=== PATIENT | male | born 1935 | race Caucasian/White ===

== ENCOUNTER 2018-06-28 05:26 | Observation (INO) | payer OTHER ==
[2018-06-28] MEDS ORDERED: ceFAZolin 2 GM/DEXTROSE 100 ML IV ONE (05:56)
[2018-06-28] MEDS ORDERED: ACETAMINOPHEN 500 MG TAB PO ONE (05:56)
[2018-06-28] MEDS ORDERED: GABAPENTIN 300 MG CAP PO ONE (05:56)
[2018-06-28] MEDS ORDERED: LR 1,000 ML IV ONE (05:58)
[2018-06-28] MEDS ORDERED: CHLORHEXIDINE GLUC HIBICLENS 118 ML BTL TP ONE (06:20)
[2018-06-28] MEDS ORDERED: THROMBIN (BOVINE) 5,000 UNIT VIAL TP ONE (06:21)
[2018-06-28] MEDS ORDERED: DEPO METHYLPREDNISOLONE 40 MG/ML SDV ONE (06:21)
[2018-06-28] MEDS ORDERED: EPINEPHrine 1 MG/ML INJ ONE (06:21)
[2018-06-28] MEDS ORDERED: BUPIVACAINE 0.25% 30 ML SDV ONE (06:21)
[2018-06-28] MEDS ORDERED: BACITRACIN 50,000 UNITS/10 ML SYR IRR ONE (06:22)
[2018-06-28] MEDS ORDERED: NITROGLYCERIN 0.4 MG BTL SL PRN (06:38)
--- NOTE | 2018-06-28 06:38 | PDHPUP ---
History & Physical Update H&P update statement: This history and physical update is based on an assessment of the patient which was completed after admission or registration (within 24 hours), but prior to the surgery/procedure. H&P update: H&P reviewed & patient examined, no change in patient's condition since H&P completed
[2018-06-28] MEDS ORDERED: PROPOFOL/EMULSION 500 MG/50 ML BOTTLE IV ONE ×2 (06:54→08:30)
[2018-06-28] MEDS ORDERED: fentaNYL 250 MCG/5 ML INJ ONE (06:56)
[2018-06-28] MEDS ORDERED: BISACODYL 10 MG SUPP PR PRN (07:03)
[2018-06-28] MEDS ORDERED: METHOCARBAMOL 750 MG TAB PO PRN (07:03)
[2018-06-28] MEDS ORDERED: POLYETHYLENE GLYCOL 3350 17 GM PKT PO PRN (07:03)
[2018-06-28] MEDS ORDERED: ONDANSETRON DISINTEGRATING 4 MG TAB PO PRN (07:03)
[2018-06-28] MEDS ORDERED: ONDANSETRON 4 MG/2 ML VIAL IVP PRN (07:03)
[2018-06-28] MEDS ORDERED: diphenhydrAMINE 25 MG CAP PO PRN (07:03)
[2018-06-28] MEDS ORDERED: HYDROmorphONE/DILAUDID 1 MG/ML INJ IVP PRN (07:03)
[2018-06-28] MEDS ORDERED: MAGNESIUM HYDROXIDE 30 ML UDCUP PO PRN (07:03)
[2018-06-28] MEDS ORDERED: oxyCODONE IR 5 MG TAB PO PRN (07:03)
[2018-06-28] MEDS ORDERED: LACTULOSE 20 GM/30 ML UDCUP PO PRN (07:03)
[2018-06-28] MEDS ORDERED: NS 1,000 ML IV SCH (07:15)
--- NOTE | 2018-06-28 08:10 | PDANEPAE ---
ANE History of Present Illness 82 year old male for left lumbar radiculopathy for microdiscectomy. History of CAD, CHF, HTN. ANE Past Medical History - Cardiovascular History Hx Hypertension: Yes Hx Arrhythmias: No Hx Chest Pain: No Hx Coronary Artery / Peripheral Vascular Disease: Yes Hx CHF / Valvular Disease: Yes Hx Palpitations: No Cardiovascular History Comment: CHF 2011 TREATED WITH MEDS OK NOW. ME 2011. STENTS 2012. CASING FLUSHER [facility] [phone]. stent x 2 - Pulmonary History Hx COPD: No Hx Asthma/Reactive Airway Disease: No Hx Recent Upper Respiratory Infection: No Hx Oxygen in Use at Home: No Hx Sleep Apnea: No Sleep Apnea Screening Result - Last Documented: Positive - Neurologic History Hx Cerebrovascular Accident: No Hx Seizures: No Hx Dementia: No - Endocrine History Hx Diabetes: No - Renal History Hx Renal Disorders: No Renal History Comment: NORMAL FOR AGE - Liver History Hx Hepatic Disorders: No - Neurological & Psychiatric Hx Hx Neurological and Psychiatric Disorders: No - Cancer History Hx Cancer: No - Congenital Disorder History Hx Congenital Disorders: No - GI History Hx Gastrointestinal Disorders: No - Other Health History Other Health History: PSORIASIS. PSORIACTIC ARTHRITIS. upper partial - Chronic Pain History Chronic Pain: Yes (LUMBAR REGION DOWN LT LEG AND IN SCIATICA) - Surgical History Prior Surgeries: CERVICAL DISCECTOMY. DEJAN CATARACTS. LT WRIST LIGAMENT REPAIR. DEJAN BREAST BX. lumbar sx x 2 ANE Review of Systems Review of systems is: negative Review of Systems: - Exercise capacity METS (RN): 3 METS ANE Patient History - Allergies Allergies/Adverse Reactions: smallpox vaccine,live Allergy (Verified 06/15/18 10:52) - Home Medications Home Medications: Aspirin [Aspirin 81mg (*)] 81 mg PO DAILY 06/12/18 [Last Taken 06/21/18] Atorvastatin Calcium [Lipitor 40 mg (*)] 80 mg PO DAILY 06/12/18 [Last Taken 04:00] Carvedilol [Coreg (*)] 3.125 mg PO BIDMEAL 06/12/18 [Last Taken 06/28/18 04:00] Clopidogrel Bisulfate [Plavix (*)] 75 mg PO DAILY 06/12/18 [Last Taken 06/21/18] Nitroglycerin [Nitrostat 0.4 mg (*)] 0.4 mg SL Q5M PRN 06/12/18 [Last Taken Unknown] predniSONE 2.5 mg PO DAILY 06/12/18 [Last Taken 06/28/18 04:00] traMADol [Ultram 50 mg (*)] 100 mg PO BID 06/12/18 [Last Taken 06/28/18 04:00] - NPO status NPO Since - Liquids (Date): 06/27/18 NPO Since - Liquids (Time): 19:00 NPO Since - Solids (Date): 06/27/18 NPO Since - Solids (Time): 19:00 - Smoking Hx Smoking Status: Former smoker - Family Anes Hx Family Hx Anesthesia Complications: none ANE Labs/Vital Signs - Vital Signs Blood Pressure: 131/77 Heart Rate: 60 Respiratory Rate: 13 O2 Sat (%): 92 Height: 170.18 cm Weight: 79.832 kg ANE Physical Exam - Airway Neck exam: decreased ROM Mallampati Score: Class 2 Mouth exam: normal dental/mouth exam - Pulmonary Pulmonary: no respiratory distress - Cardiovascular Cardiovascular: regular rate and rhythym - ASA Status ASA Status: III ANE Anesthesia Plan Anesthesia Plan: general endotracheal anesthesia
[2018-06-28] MEDS ORDERED: NALOXONE HCL 0.4 MG/ML INJ IVP PRN ×2 (08:11→11:07)
[2018-06-28] MEDS ORDERED: ALBUTEROL 3 ML DEYVIAL IH PRN (08:11)
[2018-06-28] MEDS ORDERED: fentaNYL 100 MCG/2 ML INJ IVP PRN ×2 (08:11→11:07)
[2018-06-28] MEDS ORDERED: LABETALOL HCL 5 MG/ML 20 ML MDV IVP PRN ×2 (08:16→11:07)
--- NOTE | 2018-06-28 10:07 | POSTOPPROG ---
Post Op Note Date of Operation: 06/28/18 Surgeon: Jordan Vieira Front Office Coordinator: TATIANA Rosenthal Anesthesiologist: MD Ellie Anesthesia: GET(General Endotracheal), Local (Specify) Pre-op Diagnosis: lumbar stenosis L5/S1 Post-op Diagnosis: lumbar stenosis L5/S1 Indication: left LE pain, lumbar stenosis Procedure: Left L5/S1 RAFITA-redo Findings: see op report Inf/Abcess present in the surg proc area at time of surgery?: No Depth: Deep Incisional (Fascial) EBL: 50-100 Total fluids administered: see anesthesia record Complications: none Bowel Protocol: Yes Clean Closure Performed: Yes
--- NOTE | 2018-06-28 10:11 | SOAPPROG ---
SOAP Progress Note Assessment/Plan: Post Op Visit: S: Awake and alert. Pt with expected lower back pain O: AFVSS/PERRLA/EOMI no droop CN 2-12 grossly intact +lt touch 5/5 BUE/BLE = CDI A/P: 82 yo male that is s/p redo left sided L5/S1 RAFITA -orders in place -call with any questions or concerns -take medications as directed -pt seen by Dr Vieira as well -no bending or twisting -admit obs -PT/OT pending Objective: Vital Signs Temp Pulse Resp BP Pulse Ox 36.7 C 60 13 131/77 H 92 06/28/18 06:49 06/28/18 08:11 06/28/18 08:11 06/28/18 08:11 06/28/18 08:11 ICD10 Worksheet Patient Problems: Problems Problem Status Onset Lumbar stenosis with neurogenic claudication Acute
[2018-06-28] MEDS ORDERED: HYDROmorphONE/DILAUDID 2 MG/ML INJ ONE (10:32)
--- NOTE | 2018-06-28 10:36 | POSTANESTH ---
Post Anesthetic Evaluation Cardiovascular Status: Normal, Stable Respiratory Status: Normal, Stable Level of Consciousness/Mental Status: Mildly Sleepy, Arousable Pain Control: Adequate, Prn Tx Ordered Nausea/Vomiting Control: Adequate, Prn Tx Ordered Complications Possibly Related to Anesthesia: None Noted
[2018-06-28] MEDS ORDERED: HYDROmorphONE/DILAUDID 2 MG/ML INJ IVP PRN (11:00)
[2018-06-28] MEDS ORDERED: MEPERIDINE 25 MG/0.5 ML AMP IVP PRN (11:07)
[2018-06-28] MEDS ORDERED: PHENYLEPHRINE HCL 100 MCG/ML SYR IVP PRN (11:07)
[2018-06-28] MEDS ORDERED: DIAZEPAM 5 MG/ML 1 ML SYR IVP PRN (11:07)
[2018-06-28] MEDS ORDERED: PROMETHAZINE HCL 25 MG/ML INJ IVP PRN (11:07)
[2018-06-28] MEDS: CARVEDILOL 3.125 MG TAB PO SCH ×2 (12:19→18:30)
[2018-06-28] MEDS: ATORVASTATIN CALCIUM 40 MG TAB PO SCH (12:19)
[2018-06-28] MEDS: traMADol 50 MG TAB PO SCH ×2 (12:20→22:28)
[2018-06-28] MEDS: SENNOSIDES/DOCUSATE SODIUM TAB PO SCH ×2 (12:20→22:30)
[2018-06-28] MEDS: FAMOTIDINE 20 MG TAB PO SCH ×2 (12:20→22:31)
[2018-06-28] MEDS: predniSONE 1 MG TAB PO SCH (12:20)
--- NOTE | 2018-06-28 12:21 | GOP ---
[f rep st] OPERATIVE REPORT DATE OF OPERATION: 06/28/2018 SURGEON: Peter Vieira MD PERSONAL INVESTMENT ADVISER: Parish Rosenthal PA-C PREOPERATIVE DIAGNOSIS: Recurrent left L5-S1 disk herniation with a left S1 radiculopathy, left L4-5 severe lateral recess stenosis. POSTOPERATIVE DIAGNOSIS: Recurrent left L5-S1 disk herniation with a left S1 radiculopathy, left L4- 5 severe lateral recess stenosis. PROCEDURE PERFORMED: Left L5-S1 re-exploration, microdiskectomy (89457), microscope. FINDINGS: ESTIMATED BLOOD LOSS: 25 cc. INDICATIONS: The patient is an elderly gentleman with a prior history of lumbar surgeries without in strumentation, who had a previous lumbar microdiskectomy at L5-S1 in 2016 and had recurrent pain that we actually managed for several months with conservative measures, but the pain recently grew worse and intolerable. I thought that he was going to need a fusion at L5-S1, but subsequent MRI did demon strate a large left disk herniation at L5-S1, creating the left S1 radiculopathy. There was also dis k prolapse and severe left lateral recess stenosis for the L5 root, but the patient really had zero c omplaints of any L5-mediated pain, and I did not suggest surgery there, although it is certainly poss ible he will ultimately require surgery at L4-5. I suggested reexploration. If this fails to elimin ate his problem, he could consider a fusion, although almost certainly would require fusion at 2 leve ls, L4-5, L5-S1, because of the findings at L4-5. The risk of continued symptoms, recurrent disk her niation, nerve root injury, spinal fluid leak was discussed. He wanted to proceed despite these risk s. DESCRIPTION OF PROCEDURE: Patient was taken to the operating room, placed in the supine position. G eneral anesthesia was begun. He was flipped prone onto the Valentino frame. Care was taken to pad all points of contact. His back was sterilely prepped and draped in usual fashion. A localizing x-ray w as taken. I made a midline incision above the L5-S1 interspace. A 2.5 cm incision was used, which i s a little longer than our typical incision. The subcutaneous tissue was dissected using Bovie caute ry down through the fascia, and a subperiosteal dissection was made down the lamina of S1 and the ros tral lamina of L5 that remained intact. Self-retaining retractor was placed. We exposed the lamina of S1 and drilled a left S1 laminotomy just adjacent to the S1 pedicle. This allowed us to expose th e normal S1 nerve root. We then followed this normal nerve root up into the laminotomy scar and work ed our way into the neural foramen on the left at L5-S1. We did take a 3 mm laurie drill bit and dr keating off the rostral medial lip of the S1 pedicle to help us work our way into the neural foramen. Did this safely, staying away from the S1 root. There was a large amount of scar tissue in the neura l foramen itself just lateral to the S1 root. We incised this and then began sweeping disk material out from underneath the S1 root. We got a large amount of material, and the root relaxed nicely. Th e scar that was containing this disk material, however, remained intact, and I probed the area of the containment scar thoroughly and got several additional pieces of disk. We removed some loose pieces of L5-S1 disk material from the disk space itself. We then swept a ball-tip probe into the scar its elf and pulled the scar out lateral to the S1 root, and then we amputated the lateral aspect of the s car that was containing the disk herniation. Amputating the scar that was underneath the S1 root ope anisha up the scar even further, and we got additional few small pieces of disk material out of this. I wanted to remove the entire scar in its entirety, and I tried pulling on it and dissecting it free f rom the S1 root, but really would not separate without very significant force. I did not want to cre ate a ventral CSF leak. We irrigated the disk space with large amounts of antibiotic saline. The S1 root on the left side was totally decompressed. We then placed a little Depo-Medrol down over the l eft S1 root and then closed the incision in multiple layers using Vicryl sutures. A running PDS was placed in the skin itself. The patient was reversed from anesthesia, extubated, and transferred to r ecovery room in stable condition. COMPLICATIONS: None. /[id number]/MODL
[2018-06-28] MEDS: ACETAMINOPHEN 500 MG TAB PO SCH ×2 (14:51→22:30)
[2018-06-28] MEDS: GABAPENTIN 300 MG CAP PO SCH ×2 (14:53→22:30)
[2018-06-28] MEDS: ceFAZolin 2 GM/DEXTROSE 100 ML IV SCH ×2 (14:54→22:38)
[2018-06-29] MEDS: GABAPENTIN 300 MG CAP PO SCH (05:58)
[2018-06-29] MEDS: ACETAMINOPHEN 500 MG TAB PO SCH (06:05)
--- NOTE | 2018-06-29 08:13 | SOAPPROG ---
SOAP Progress Note Assessment/Plan: Assessment: 82yo male POD #1 sp redo left RAFITA Left leg pain improved. Doing well. Plan: DC home today. He may restart his Plavix on Monday per Dr. Vieira Change dressing prior to DC. 06/29/18 08:11 Subjective: In bed, comfortable. Denies numbness, tingling or weakness. States left leg pain is gone. Objective: Vital Signs Temp Pulse Resp BP Pulse Ox 37.2 C 74 17 113/56 L 95 06/29/18 08:00 06/29/18 08:00 06/29/18 08:00 06/29/18 08:00 06/29/18 08:00 06/28/18 06/29/18 06/30/18 05:59 05:59 05:59 Intake Total 2109 240 Output Total 325 Balance 1784 240 Neuro: MORRISSEY, Sens +LT follows commands speech clear ambulatory with PT 5/5 bilateral LE Incision: Dressing with dried blood. Will have RN change prior to DC ICD10 Worksheet Patient Problems: Problems Problem Status Onset Lumbar stenosis with neurogenic claudication Acute
[2018-06-29] MEDS: ATORVASTATIN CALCIUM 40 MG TAB PO SCH (09:32)
[2018-06-29] MEDS: CARVEDILOL 3.125 MG TAB PO SCH (09:33)
[2018-06-29] MEDS: traMADol 50 MG TAB PO SCH (09:33)
[2018-06-29] MEDS: SENNOSIDES/DOCUSATE SODIUM TAB PO SCH (09:33)
[2018-06-29] MEDS: FAMOTIDINE 20 MG TAB PO SCH (09:34)
[2018-06-29] MEDS: predniSONE 1 MG TAB PO SCH (09:48)
--- NOTE | 2018-06-29 10:03 | ASMTLACE ---
LACE Length of stay for Answers: 2 days current admission Acuity / Level of Answers: No Care: Did the patient have an inpatient admission? Comorbidities - select Answers: Congestive heart failure all that apply Coronary Artery Disease Opioid dependence / Chronic pain Previous myocardial infarction Other Notes: HTN # of Emergency department Answers: 0 visits in the last 6 months Score: 12 Date Signed: 06/29/2018 10:03 AM Electronically Signed By:FLORENCIA Murray
--- NOTE | 2018-06-29 10:04 | ASMTCMCOM ---
CM Note CM Note Notes: Pt resides with , PT rec home/outpatient. Pt was pre-arranged with [facility] by , pt declines HC now. Pt has had HHC and is not interested. No CM d/c needs identified. Date Signed: 06/29/2018 10:04 AM Electronically Signed By:FLORENCIA Murray
[2018-06-29 11:36] VITALS: BP 125/62
[2018-07-01] MEDS ORDERED: ENOXAPARIN 40 MG/0.4 ML SYR SC SCH (09:00)
== END 2018-06-29 13:00 | disposition home or self-care (01) ==
LOC: INTOOBSV 05:26 → F3N 05:26
PROVIDERS: ADMIT Neurological Surgery; ATTEND Neurological Surgery
PROC: 01NR0ZZ Release Sacral Nerve, Open Approach (ICD-10-PCS; principal; 2018-06-28 07:15)
DX: M51.27 Other intervertebral disc displacement, lumbosacral region (principal); M54.16 Radiculopathy, lumbar region; I10 Essential (primary) hypertension; I25.10 Atherosclerotic heart disease of native coronary artery without angina pectoris; L40.50 Arthropathic psoriasis, unspecified; I25.2 Old myocardial infarction; Z95.5 Presence of coronary angioplasty implant and graft
CPT/HCPCS: 63042; 76000; 97161; 97165; J0171; J0690; J1030; J1170; J2704; J3010; J7512